=== PATIENT | male | born 1935 | race African-American/Black ===

== ENCOUNTER → 2017-01-07 | Outpatient (CLI) | payer MEDICARE, OTHER ==
[2017-01-08 15:28] LABS: ALANINE AMINOTRANSFERASE 24 U/L (21-72); ASPARTATE AMINO TRANSFERASE 19 U/L (17-59)
== END ==
LOC: OD 15:27
PROVIDERS: ATTEND Podiatrist Foot Surgery
DX: B35.1 Tinea unguium (principal)
CPT/HCPCS: 36415; 84450; 84460

== ENCOUNTER 2019-07-20 19:15 | Emergency (ER) | payer MEDICARE, OTHER ==
--- NOTE | 2019-07-20 19:42 | ER Document Report ---
ED Medical Screen (RME) - General Stated Complaint: BLOOD IN URINE Time Seen by Provider: 07/20/19 19:40 Primary Care Provider: YUNIOR CUMMINGS DPM [Primary Care Provider] - Follow up as needed Mode of Arrival: Ambulatory Information source: Patient Notes: Patient presents complaining of hematuria for the past 3 days. Patient also has some nausea and headache. Patient denies any fever. Patient reports occasional left lower quadrant abdominal pain. Patient reports only history of hypertension, diabetes and BPH. I have greeted and performed a rapid initial assessment of this patient. A comprehensive ED assessment and evaluation of the patient, analysis of test results and completion of the medical decision making process will be conducted by additional ED providers. TRAVEL OUTSIDE OF THE [place] IN LAST 30 DAYS: No - Related Data Allergies/Adverse Reactions: No Known Drug Allergies Allergy (Verified 10/04/12 08:49) wintergreen Allergy (Uncoded 09/28/12 13:42) running nose Past Medical History - Past Medical History Cardiac Medical History: Reports: Hx Hypertension Denies: Hx Heart Attack Pulmonary Medical History: Denies: Hx Asthma Neurological Medical History: Denies: Hx Cerebrovascular Accident, Hx Seizures GI Medical History: Denies: Hx Hepatitis, Hx Hiatal Hernia, Hx Ulcer Infectious Medical History: Denies: Hx Hepatitis Past Surgical History: Denies: Hx Open Heart Surgery, Hx Pacemaker Physical Exam - Vital signs Vitals: Temp Pulse Resp BP Pulse Ox 98.0 F 99 16 150/84 H 96 07/20/19 19:19 07/20/19 19:19 07/20/19 19:19 07/20/19 19:19 07/20/19 19:19 - Abdominal Tenderness: Tender - Left lower quadrant Course - Vital Signs Vital signs: Temp Pulse Resp BP Pulse Ox 98.0 F 99 16 150/84 H 96 07/20/19 19:19 07/20/19 19:19 07/20/19 19:19 07/20/19 19:19 07/20/19 19:19 Doctor's Discharge - Discharge Referrals: YUNIOR CUMMINGS DPM [Primary Care Provider] - Follow up as needed
[2019-07-20 20:01] LABS: APPEARANCE,URINE CLOUDY; BILIRUBIN,URINE NEGATIVE (NEGATIVE); COLOR,URINE RED; GLUCOSE, URINE 150 mg/dL (NEGATIVE); KETONES,URINE 20 mg/dL (NEGATIVE); LEUKOCYTE ESTERASE,URINE NEGATIVE (NEGATIVE); NITRITE,URINE NEGATIVE (NEGATIVE); PROTEIN,URINE 100 mg/dL (NEGATIVE); URINE SPECIFIC GRAVITY 1.017; UROBILINOGEN,URINE NEGATIVE mg/dL (<2.0)
[2019-07-20 20:38] LABS: ABSOLUTE EOSINOPHILS # (AUTO) 0.2 10^3/uL (0.0-0.6); ABSOLUTE LYMPHOCYTES (AUTO) 1.2 10^3/uL (0.5-4.7); ABSOLUTE MONOCYTES (AUTO) 0.5 10^3/uL (0.1-1.4); ABSOLUTE NEUT (AUTO) 2.7 10^3/uL (1.7-8.2); BASOPHILS % (AUTO) 0.9 % (0-2); EOSINOPHILS % (AUTO) 4.3 % (0-6); HEMATOCRIT 40.3 % (37.9-51.0); HEMOGLOBIN 13.7 g/dL (13.5-17.0); LYMPHOCYTES % (AUTO) 25.5 % (13-45); MEAN CORPUSCULAR HEMOGLOBIN 29.9 pg (27.0-33.4); MEAN CORPUSCULAR VOLUME 88 fl (80-97); MONOCYTES % (AUTO) 11.6 % (3-13); PLATELET COUNT 192 10^3/uL (150-450); RED BLOOD COUNT 4.59 10^6/uL (4.35-5.55); RED CELL DISTRIBUTION WIDTH 13.2 % (11.5-14.0); SEGMENTED NEUTROPHILS % (AUTO) 57.7 % (42-78); TOTAL CELLS COUNTED % (AUTO) 100 %; WHITE BLOOD COUNT 4.6 10^3/uL (4.0-10.5)
[2019-07-20 20:57] LABS: ALBUMIN 3.8 g/dL (3.5-5.0); ALKALINE PHOSPHATASE 68 U/L (38-126); ANION GAP 13 (5-19); ASPARTATE AMINO TRANSFERASE 19 U/L (17-59); BILIRUBIN,DIRECT 0.1 mg/dL (0.0-0.4); BILIRUBIN,TOTAL 0.6 mg/dL (0.2-1.3); BLOOD UREA NITROGEN 16 mg/dL (7-20); CALCIUM 8.5 mg/dL (8.4-10.2); CARBON DIOXIDE 23 mmol/L (22-30); CHLORIDE 103 mmol/L (98-107); GLUCOSE 291 mg/dL (75-110); INTERNATIONAL RATION (INR) 1.01; PROTHROMBIN TIME 13.3 SEC (11.4-15.4); TOTAL PROTEIN 7.1 g/dL (6.3-8.2)
[2019-07-20] MEDS ORDERED: NORMAL SALINE 1000 ML 1,000 ML IV ONE (21:08)
--- NOTE | 2019-07-20 21:58 | ER Document Report ---
ED GI/ - General Chief Complaint: Penile Bleeding Stated Complaint: BLOOD IN URINE Time Seen by Provider: 07/20/19 19:40 Primary Care Provider: YUNIOR CUMMINGS DPM [ACTIVE STAFF] - Follow up as needed Mode of Arrival: Ambulatory Information source: Patient Notes: Patient presents complaining of hematuria for the past 3 days. Patient also has some nausea and headache. Patient denies any fever. Patient reports occasional left lower quadrant abdominal pain. Patient reports only history of hypertension, diabetes and BPH. TRAVEL OUTSIDE OF THE [place] IN LAST 30 DAYS: No - Related Data Allergies/Adverse Reactions: Zzkskoq-Oml-Wfx Reductase Inhibitor Allergy (Verified 07/20/19 19:46) wintergreen Allergy (Uncoded 09/28/12 13:42) running nose Home Medications: lantus unit 20-24 units. glimipiride 4 mg qday. talmisartab 80 mg qday. januvia 50 mg daily. nifedipine 30 mg qday Past Medical History - General Information source: Patient - Social History Smoking Status: Never Smoker Frequency of alcohol use: None Drug Abuse: None Family History: Reviewed & Not Pertinent Patient has suicidal ideation: No Patient has homicidal ideation: No - Past Medical History Cardiac Medical History: Reports: Hx Hypertension Denies: Hx Heart Attack Pulmonary Medical History: Denies: Hx Asthma Neurological Medical History: Denies: Hx Cerebrovascular Accident, Hx Seizures Endocrine Medical History: Reports: Hx Diabetes Mellitus Type 2 GI Medical History: Denies: Hx Hepatitis, Hx Hiatal Hernia, Hx Ulcer Infectious Medical History: Denies: Hx Hepatitis Past Surgical History: Denies: Hx Open Heart Surgery, Hx Pacemaker Review of Systems - Review of Systems Constitutional: No symptoms reported EENT: No symptoms reported Cardiovascular: No symptoms reported Respiratory: No symptoms reported Gastrointestinal: Abdominal pain Genitourinary: Hematuria Male Genitourinary: No symptoms reported Musculoskeletal: No symptoms reported Skin: No symptoms reported Hematologic/Lymphatic: No symptoms reported Neurological/Psychological: No symptoms reported Physical Exam - Vital signs Vitals: Temp Pulse Resp BP Pulse Ox 98.0 F 99 16 150/84 H 96 07/20/19 19:19 07/20/19 19:19 07/20/19 19:19 07/20/19 19:19 07/20/19 19:19 - Notes Notes: PHYSICAL EXAMINATION: GENERAL: Well-appearing, well-nourished and in no acute distress. HEAD: Atraumatic, normocephalic. EYES: Pupils equal round and reactive to light, extraocular movements intact, sclera anicteric, conjunctiva are normal. ENT: Nares patent, oropharynx clear without exudates. Moist mucous membranes. NECK: Normal range of motion, supple without lymphadenopathy LUNGS: Breath sounds clear to auscultation bilaterally and equal. No wheezes rales or rhonchi. HEART: Regular rate and rhythm without murmurs ABDOMEN: Soft, nontender, nondistended abdomen. No guarding, no rebound. No masses appreciated. Musculoskeletal: Normal range of motion, no pitting or edema. No cyanosis. NEUROLOGICAL: Cranial nerves grossly intact. Normal speech, normal gait. Normal sensory, motor exams PSYCH: Normal mood, normal affect. SKIN: Warm, Dry, normal turgor, no rashes or lesions noted. PHYSICAL EXAMINATION: Course - Re-evaluation Re-evalutation: Microbiology 07/20/19 19:30 Urine Culture - Final Clean Catch Midstream Mixed Urogenital [facility] 07/20/19 07/20/19 07/20/19 19:30 20:25 20:25 WBC 4.6 RBC 4.59 Hgb 13.7 Hct 40.3 MCV 88 MCH 29.9 MCHC 34.0 RDW 13.2 Plt Count 192 Lymph % (Auto) 25.5 [place] % (Auto) 11.6 Eos % (Auto) 4.3 Baso % (Auto) 0.9 Absolute Neuts (auto) 2.7 Absolute Lymphs (auto) 1.2 Absolute Monos (auto) 0.5 Absolute Eos (auto) 0.2 Absolute Basos (auto) 0.0 Seg Neutrophils % 57.7 PT 13.3 INR 1.01 APTT 32.0 Sodium Potassium Chloride Carbon Dioxide Anion Gap BUN Creatinine Est GFR ( Amer) Est GFR (MDRD) Non-Af Glucose Calcium Total Bilirubin Direct Bilirubin Neonat Total Bilirubin Neonat Direct Bilirubin Neonat Indirect Bili AST ALT Alkaline Phosphatase Total Protein Albumin Urine Color RED Urine Appearance CLOUDY Urine pH 7.0 Ur Specific [place] 1.017 Urine Protein 100 H Urine Glucose (UA) 150 H Urine Ketones 20 H Urine Blood LARGE H Urine Nitrite NEGATIVE Urine Bilirubin NEGATIVE Urine Urobilinogen NEGATIVE Ur Leukocyte Esterase NEGATIVE Urine RBC (Auto) >182 Urine Ascorbic Acid NEGATIVE 07/20/19 20:25 WBC RBC Hgb Hct MCV MCH MCHC RDW Plt Count Lymph % (Auto) [place] % (Auto) Eos % (Auto) Baso % (Auto) Absolute Neuts (auto) Absolute Lymphs (auto) Absolute Monos (auto) Absolute Eos (auto) Absolute Basos (auto) Seg Neutrophils % PT INR APTT Sodium 138.8 Potassium 4.0 Chloride 103 Carbon Dioxide 23 Anion Gap 13 BUN 16 Creatinine 1.24 Est GFR ( Amer) > 60 Est GFR (MDRD) Non-Af 56 L Glucose 291 H Calcium 8.5 Total Bilirubin 0.6 Direct Bilirubin 0.1 Neonat Total Bilirubin Not Reportable Neonat Direct Bilirubin Not Reportable Neonat Indirect Bili Not Reportable AST 19 ALT 10 Alkaline Phosphatase 68 Total Protein 7.1 Albumin 3.8 Urine Color Urine Appearance Urine pH Ur Specific [place] Urine Protein Urine Glucose (UA) Urine Ketones Urine Blood Urine Nitrite Urine Bilirubin Urine Urobilinogen Ur Leukocyte Esterase Urine RBC (Auto) Urine Ascorbic Acid Abdomen/Pelvis CT 07/20/19 19:40 IMPRESSION: Massive enlargement of the prostate, with impression upon the urinary bladder. Adjacent areas of hyperdensity in urinary bladder likely reflect blood products. Partially calcified soft tissue mass near the pancreatic body. This could reflect adjacent calcified lymph node. A true pancreatic neoplasm is not excluded. Nonspecific subcentimeter hypodensities in the liver. Large hiatal hernia. Mild left hydronephrosis, likely secondary to massive prostate enlargement. TECHNICAL DOCUMENTATION: Quality ID # 436: Final reports with documentation of one or more dose reduction techniques (e.g., Automated exposure control, adjustment of the mA and/or kV according to patient size, use of iterative reconstruction technique) copyright 2011 [employer]- All Rights Reserved Patient appears well, nontoxic, vital signs within normal limits. Patient has an appointment scheduled with his urologist for early next week. Encourage close follow-up. Will start patient on appropriate medications at this time for prostate enlargement and possible prostatitis. Strict ED return precautions were discussed. The patient's emergency department workup and current diagnosis were explained to the patient and or family. Follow-up instructions were provided. Medications if prescribed were discussed. Instructions for when to return to the emergency department including specific worrisome symptoms were discussed with the patient and/or family. - Vital Signs Vital signs: Temp Pulse Resp BP Pulse Ox 97.7 F 76 16 142/81 H 98 07/20/19 23:09 07/20/19 23:09 07/20/19 23:09 07/20/19 23:09 07/20/19 23:09 - Laboratory Result Diagrams: 07/20/19 20:25 07/20/19 20:25 Laboratory results interpreted by me: 07/20/19 07/20/19 19:30 20:25 Est GFR (MDRD) Non-Af 56 L Glucose 291 H Urine Protein 100 H Urine Glucose (UA) 150 H Urine Ketones 20 H Urine Blood LARGE H Discharge - Discharge Clinical Impression: Enlarged prostate Hematuria Qualifiers: Hematuria type: gross Qualified Code(s): R31.0 - Gross hematuria Condition: Stable Disposition: HOME, SELF-CARE Additional Instructions: Your work-up today showed that you have significant enlargement of the prostate. I am starting you on a medication for this. We are also starting you on an an tibiotic. Please follow-up with your urologist on Thursday, bring the medicines that I started you on and please bring a copy of your paperwork from this visit so he can review your CAT scan. Please return to the emergency department with any new or worsening symptoms to include weakness, vomiting, faintness or development of fever. Prescriptions: Sulfamethoxazole/Trimethoprim [Bactrim Ds Tablet] 1 tab PO BID #14 tablet Finasteride [Proscar 5 mg Tablet] 5 mg PO DAILY #10 tablet Referrals: YUNIOR CUMMINGS DPM [ACTIVE STAFF] - Follow up as needed
--- NOTE | 2019-07-20 22:04 | RADIOLOGY REPORT (SQ) ---
EXAM DESCRIPTION: CT ABDOMEN PELVIS WITHOUT IV CONTRAST COMPLETED DATE/TME: 07/20/2019 19:40 CLINICAL HISTORY: 84 years, Male, hematuria, LLQ pain COMPARISON: None. TECHNIQUE: 216 Images stored on PACS. All CT scanners at this facility use dose modulation, iterative reconstruction, and/or weight based dosing when appropriate to reduce radiation dose to as low as reasonably achievable (ALARA). [facility]: Dose Right [facility]: CareDose [facility]: Dose Right [facility]: Teradose 4D [facility]: [employer] LIMITATIONS: None. FINDINGS: Limited evaluation of the lung bases shows a large hiatal hernia. Osseous structures are grossly intact. Subcentimeter hypodensities in the liver. These are nonspecific. The spleen, adrenal glands are unremarkable. There is a partially calcified 3.6 x 2.0 cm mass in the region of the pancreatic body. This partially volume averages with the adjacent stomach. Multiple bilateral renal cysts. The gallbladder is present. Moderate left hydroureteronephrosis. Massive enlargement of the prostate with areas of hyperdensity in the adjacent urinary bladder. Multiple calcifications of the prostate are noted. Vascular calcifications. Negative for urinary tract calculus. No evidence for bowel obstruction. Abundant stool in the colon. Occasional sigmoid diverticuli. No CT evidence for diverticulitis. No free air or free fluid IMPRESSION: Massive enlargement of the prostate, with impression upon the urinary bladder. Adjacent areas of hyperdensity in urinary bladder likely reflect blood products. Partially calcified soft tissue mass near the pancreatic body. This could reflect adjacent calcified lymph node. A true pancreatic neoplasm is not excluded. Nonspecific subcentimeter hypodensities in the liver. Large hiatal hernia. Mild left hydronephrosis, likely secondary to massive prostate enlargement. TECHNICAL DOCUMENTATION: Quality ID # 436: Final reports with documentation of one or more dose reduction techniques (e.g., Automated exposure control, adjustment of the mA and/or kV according to patient size, use of iterative reconstruction technique) copyright 2011 [employer]- All Rights Reserved
[2019-07-20] MEDS ORDERED: FINASTERIDE 5 MG TABLET PO ONE (22:58)
[2019-07-20] MEDS ORDERED: SULFAMETHOXAZOLE/TRIMETHOPRIM 800-160 MG TABLET PO ONE (22:59)
[2019-07-20 23:10] VITALS: BP 142/81
== END 2019-07-20 23:10 | disposition home or self-care (01) ==
LOC: ER 19:15
DX: L27.0 Generalized skin eruption due to drugs and medicaments taken internally (principal); T50.905A Adverse effect of unspecified drugs, medicaments and biological substances, initial encounter; R11.0 Nausea; R51 Headache; R30.9 Painful micturition, unspecified; M79.604 Pain in right leg; M79.605 Pain in left leg; I10 Essential (primary) hypertension; E11.9 Type 2 diabetes mellitus without complications; Z88.8 Allergy status to other drugs, medicaments and biological substances; Z91.018 Allergy to other foods
CPT/HCPCS: 99284; 96360; 36415; 87086; 85025; 85610; 85730; 80053; 81001; 74176; A9270 ×2; J7030

== ENCOUNTER 2019-07-23 21:26 | Emergency (ER) | payer MEDICARE, OTHER ==
--- NOTE | 2019-07-23 21:40 | ER Document Report ---
ED Medical Screen (RME) - General Chief Complaint: Urinary Problem Stated Complaint: BLOOD IN URINE Time Seen by Provider: 07/23/19 21:35 Primary Care Provider: MAK LUA MD [Primary Care Provider] - Follow up as needed Notes: Patient presents stating that he has had hematuria for the past 6 days. Patient reports increased blood loss and feeling lightheaded. Patient does complain of lower pelvic pain and occasional left flank pain. Patient was seen here this week for hematuria and placed on antibiotic and Proscar. Patient feels as though 1 of these medications is causing him to break out in a rash. I have greeted and performed a rapid initial assessment of this patient. A comprehensive ED assessment and evaluation of the patient, analysis of test results and completion of the medical decision making process will be conducted by additional ED providers. TRAVEL OUTSIDE OF THE [place] IN LAST 30 DAYS: No - Related Data Allergies/Adverse Reactions: Jzmzxjq-Hic-Qab Reductase Inhibitor Allergy (Verified 07/20/19 19:46) finasteride [From Proscar] Adverse Reaction (Verified 07/23/19 21:39) wintergreen Allergy (Uncoded 09/28/12 13:42) running nose Past Medical History - Past Medical History Cardiac Medical History: Reports: Hx Hypertension Denies: Hx Heart Attack Pulmonary Medical History: Denies: Hx Asthma Neurological Medical History: Denies: Hx Cerebrovascular Accident, Hx Seizures Endocrine Medical History: Reports: Hx Diabetes Mellitus Type 2 GI Medical History: Denies: Hx Hepatitis, Hx Hiatal Hernia, Hx Ulcer Infectious Medical History: Denies: Hx Hepatitis Past Surgical History: Denies: Hx Open Heart Surgery, Hx Pacemaker Physical Exam - Vital signs Vitals: Temp Pulse Resp BP Pulse Ox 98.0 F 90 16 161/76 H 99 07/23/19 21:34 07/23/19 21:34 07/23/19 21:34 07/23/19 21:34 07/23/19 21:34 - Abdominal Tenderness: Tender - Lower abdomen Course - Vital Signs Vital signs: Temp Pulse Resp BP Pulse Ox 98.0 F 90 16 161/76 H 99 07/23/19 21:34 07/23/19 21:34 07/23/19 21:34 07/23/19 21:34 07/23/19 21:34 Doctor's Discharge - Discharge Referrals: MAK LUA MD [Primary Care Provider] - Follow up as needed
[2019-07-23 21:54] LABS: APPEARANCE,URINE CLEAR; BILIRUBIN,URINE NEGATIVE (NEGATIVE); COLOR,URINE RED; GLUCOSE, URINE NEGATIVE (NEGATIVE); KETONES,URINE NEGATIVE (NEGATIVE); LEUKOCYTE ESTERASE,URINE SMALL (NEGATIVE); NITRITE,URINE NEGATIVE (NEGATIVE); PROTEIN,URINE 100 mg/dL (NEGATIVE); URINE SPECIFIC GRAVITY 1.003; UROBILINOGEN,URINE NEGATIVE mg/dL (<2.0)
[2019-07-23 22:00] LABS: ABSOLUTE EOSINOPHILS # (AUTO) 0.1 10^3/uL (0.0-0.6); ABSOLUTE LYMPHOCYTES (AUTO) 0.8 10^3/uL (0.5-4.7); ABSOLUTE MONOCYTES (AUTO) 0.7 10^3/uL (0.1-1.4); ABSOLUTE NEUT (AUTO) 3.2 10^3/uL (1.7-8.2); BASOPHILS % (AUTO) 0.5 % (0-2); EOSINOPHILS % (AUTO) 2.7 % (0-6); HEMATOCRIT 38.6 % (37.9-51.0); HEMOGLOBIN 12.9 g/dL (13.5-17.0); LYMPHOCYTES % (AUTO) 15.5 % (13-45); MEAN CORPUSCULAR HEMOGLOBIN 29.5 pg (27.0-33.4); MEAN CORPUSCULAR HGB CONC 33.5 g/dL (32.0-36.0); MEAN CORPUSCULAR VOLUME 88 fl (80-97); PLATELET COUNT 183 10^3/uL (150-450); RED BLOOD COUNT 4.38 10^6/uL (4.35-5.55); RED CELL DISTRIBUTION WIDTH 13.2 % (11.5-14.0); SEGMENTED NEUTROPHILS % (AUTO) 66.3 % (42-78); TOTAL CELLS COUNTED % (AUTO) 100 %; WHITE BLOOD COUNT 4.9 10^3/uL (4.0-10.5)
[2019-07-23 22:11] LABS: INTERNATIONAL RATION (INR) 1.05; PROTHROMBIN TIME 13.7 SEC (11.4-15.4)
[2019-07-23 22:12] LABS: PARTIAL THROMBOPLASTIN TIME 33.2 SEC (23.5-35.8)
[2019-07-23 22:16] LABS: ALBUMIN 4.1 g/dL (3.5-5.0); ALKALINE PHOSPHATASE 70 U/L (38-126); ANION GAP 10 (5-19); ASPARTATE AMINO TRANSFERASE 22 U/L (17-59); BILIRUBIN,DIRECT 0.1 mg/dL (0.0-0.4); BILIRUBIN,TOTAL 0.7 mg/dL (0.2-1.3); BLOOD UREA NITROGEN 18 mg/dL (7-20); CARBON DIOXIDE 24 mmol/L (22-30); CHLORIDE 102 mmol/L (98-107); GLUCOSE 172 mg/dL (75-110); POTASSIUM 4.3 mmol/L (3.6-5.0); TOTAL PROTEIN 7.3 g/dL (6.3-8.2)
[2019-07-24] MEDS ORDERED: CEPHALEXIN 500 MG CAPSULE PO ONE (01:45)
[2019-07-24] MEDS ORDERED: PREDNISONE 20 MG TABLET PO ONE (01:45)
--- NOTE | 2019-07-24 02:00 | ER Document Report ---
Entered by HARDY CERVANTES SCRIBE 07/24/19 0145 Acting as scribe for:GIRISH KHAN IV, MD ED General - General Chief Complaint: Urinary Problem Stated Complaint: BLOOD IN URINE Time Seen by Provider: 07/23/19 21:35 Primary Care Provider: MAK LUA MD [Primary Care Provider] - Follow up as needed Notes: Patient is a 84-year-old male presenting to the emergency department complaining of hematuria. Patient states that he was seen on 07-20-19 for hematuria, and was prescribed Proscar, and sulfa medication. He states that on the he noticed he was having "large red circular spots" on his legs bilaterally. Patient states that he is feeling nauseas, headaches, having painful urination, his legs have been feeling dull and achy bilaterally. Patient denies shortness of breath. TRAVEL OUTSIDE OF THE [place] IN LAST 30 DAYS: No - Related Data Allergies/Adverse Reactions: Axhjdri-Ewe-Kwa Reductase Inhibitor Allergy (Verified 07/20/19 19:46) finasteride [From Proscar] Adverse Reaction (Verified 07/23/19 21:39) wintergreen Allergy (Uncoded 09/28/12 13:42) running nose Past Medical History - General Information source: Patient, [facility] Records - Social History Smoking Status: Never Smoker Cigarette use (# per day): No Chew tobacco use (# tins/day): No Smoking Education Provided: No Frequency of alcohol use: None Drug Abuse: None Family History: Reviewed & Not Pertinent Patient has suicidal ideation: No Patient has homicidal ideation: No - Past Medical History Cardiac Medical History: Reports: Hx Hypertension Endocrine Medical History: Reports: Hx Diabetes Mellitus Type 2 Review of Systems - Review of Systems Constitutional: No symptoms reported EENT: No symptoms reported Cardiovascular: No symptoms reported Respiratory: No symptoms reported. denies: Short of breath Gastrointestinal: No symptoms reported Genitourinary: See HPI, Dysuria, Hematuria Male Genitourinary: No symptoms reported Musculoskeletal: No symptoms reported Skin: See HPI, Change in color - Erythema, Rash - Erythema spotting lower extremities bilaterally Hematologic/Lymphatic: No symptoms reported Neurological/Psychological: See HPI, Headaches -: Yes All other systems reviewed and negative Physical Exam - Vital signs Vitals: Temp Pulse Resp BP Pulse Ox 98.0 F 90 16 161/76 H 99 07/23/19 21:34 07/23/19 21:34 07/23/19 21:34 07/23/19 21:34 07/23/19 21:34 - Notes Notes: Physical Exam: General: Alert, appears well. HEENT: Normocephalic. Atraumatic. PERRL. Extraocular movements intact. Oropharynx clear. Neck: Supple. Non-tender. Respiratory: No respiratory distress. Clear and equal breath sounds bilaterally. Cardiovascular: Regular rate and rhythm. Abdominal: Normal Inspection. Non-tender. No distension. Normal Bowel Sounds. Back: No gross abnormalities. Extremities: Moves all four extremities. Upper extremities: Normal inspection. Normal ROM. Lower extremities: Macular lesions bilaterally. Nonblanching. Normal ROM. Neurological: Normal cognition. AAOx4. Normal speech. Psychological: Normal affect. Normal Mood. Skin: Warm. Dry. Normal color. Course - Re-evaluation Re-evalutation: 07/24/19 02:12 Findings of ER MSE discussed with patient. Patient advised to stop sulfa drug in addition to the Proscar that he is already stopped. Discussed with patient likelihood of symptoms being due to a adverse drug reaction. Patient instructed to follow-up with his urologist on 07/25/2019. Emergency signs and symptoms, reasons to return to the emergency department discussed with patient. Patient expressed understanding of reasons to return to the ED. 07/24/19 02:16 Patient's prior visit to the ED including CT was reviewed by this MD. - Vital Signs Vital signs: Temp Pulse Resp BP Pulse Ox 97.6 F 78 20 132/97 H 97 07/24/19 02:05 07/24/19 02:05 07/24/19 02:05 07/24/19 02:05 07/24/19 02:05 - Laboratory Result Diagrams: 07/23/19 21:50 07/23/19 21:50 Laboratory results interpreted by me: 07/23/19 07/23/19 07/23/19 21:33 21:50 21:50 Hgb 12.9 L [place] % (Auto) 15.0 H Sodium 136.2 L Creatinine 1.53 H Est GFR ( Amer) 53 L Est GFR (MDRD) Non-Af 44 L Glucose 172 H Urine Protein 100 H Urine Blood LARGE H Ur Leukocyte Esterase SMALL H Discharge - Discharge Clinical Impression: Adverse drug reaction Condition: Good Disposition: HOME, SELF-CARE Instructions: Acute Allergic Reaction to Drugs ([facility]) Additional Instructions: Return to the Emergency Department without delay if any worse. FOLLOW UP WITH YOUR UROLOGIST ON 07/25/19 WITHOUT FAIL. HOME CARE INSTRUCTIONS & INFORMATION: Thank you for choosing us for your medical needs. We hope you're satisfied with the care you received. After you leave, you must properly care for your problem and, at the same time, observe its progress. Any condition can change. Some illnesses can change rapidly over hours or days. If your condition worsens, return to the Emergency Department or see your physician promptly. ABOUT YOUR X-RAYS AND EKG'S: If you had an EKG or X-rays taken, they have been read by the Emergency Physician. The X-rays and EKG's will also be read by a Radiologist or Drilling Contractor within 24 hours. If discrepancies are noted, you will be notified by telephone. Please be certain the ED has a correct telephone number & address where you can be reached. Also, realize that some fractures or abnormalities do not show up on initial X-rays. If your symptoms continue, see your physician. ABOUT YOUR LABORATORY TEST: If you had laboratory tests, the results have been reviewed by the Emergency Physician. Some test results (for example cultures) may not be available for several days. You will be contacted if any test result shows you need additional treatment. Please be certain the ED has a correct telephone number and address where you can be reached. ABOUT YOUR MEDICATIONS: You will receive instructions on how to take your medicine on the prescription label you receive. Additional information may be provided by the Pharmacy. If you have questions afterwards, call the ED for clarification or further instructions. Some prescribed medications may cause drowsiness. Do not perform tasks such as driving a car or operating machinery without consulting your Pharmacist. If you feel you need a refill of pain medication, your condition will need re-evaluation. Please do not call for a refill of any medication. ABOUT YOUR SIGNATURE: Signature of this document acknowledges to followin. Understanding that you received emergency treatment and that you may be released before al medical problems are known or treated. Please be certain the ED has a correct phone number & address where you can be reached. 2. Acknowledgement that you will arrange for follow-up care as recommended. 3. Authorization for the Emergency Physician to provide information to your follow-up Physician in order to maximize your care. AT ANY TIME, IF YOUR SYMPTOMS CHANGE SIGNIFICANTLY OR WORSEN OR YOU DEVELOP NEW SYMPTOMS, RETURN TO THE EMERGENCY DEPARTMENT IMMEDIATELY FOR RE-EVALUATION. OUR GOAL IS TO PROVIDE EXCELLENT MEDICAL CARE! WE HOPE THAT WE HAVE MET YOUR EXPECTATIONS DURING YOUR EMERGENCY DEPARTMENT VISIT AND THAT YOU FEEL YOU HAVE RECEIVED EXCELLENT CARE! Prescriptions: Cephalexin Monohydrate [Keflex 500 mg Capsule] 500 mg PO Q6H 7 Days #28 capsule Prednisone 10 mg PO DAILY #15 tablet Referrals: MAK LUA MD [Primary Care Provider] - Follow up as needed I personally performed the services described in the documentation, reviewed and edited the documentation which was dictated to the scribe in my presence, and it accurately records my words and actions.
[2019-07-24 02:09] VITALS: BP 132/97
== END 2019-07-24 02:10 | disposition home or self-care (01) ==
LOC: ER 21:26
DX: T50.995A Adverse effect of other drugs, medicaments and biological substances, initial encounter (principal); T37.0X5A Adverse effect of sulfonamides, initial encounter; R31.9 Hematuria, unspecified; R11.0 Nausea; R51 Headache; R30.0 Dysuria; M79.605 Pain in left leg; M79.604 Pain in right leg; I10 Essential (primary) hypertension; E11.9 Type 2 diabetes mellitus without complications
CPT/HCPCS: 99283; 36415; 87086; 85025; 85610; 85730; 80053; 81001; A9270 ×2; J7512

== ENCOUNTER 2019-07-30 08:18 | Emergency (ER) | payer MEDICARE, OTHER ==
[2019-07-30 09:54] LABS: APPEARANCE,URINE CLOUDY; BILIRUBIN,URINE NEGATIVE (NEGATIVE); COLOR,URINE RED; GLUCOSE, URINE 50 mg/dL (NEGATIVE); KETONES,URINE NEGATIVE (NEGATIVE); LEUKOCYTE ESTERASE,URINE SMALL (NEGATIVE); NITRITE,URINE NEGATIVE (NEGATIVE); PROTEIN,URINE 100 mg/dL (NEGATIVE); URINE SPECIFIC GRAVITY 1.008; UROBILINOGEN,URINE NEGATIVE mg/dL (<2.0)
[2019-07-30] MEDS ORDERED: NORMAL SALINE 1000 ML 1,000 ML IV ONE (10:58)
--- NOTE | 2019-07-30 10:58 | ER Document Report ---
ED Medical Screen (RME) - General Chief Complaint: Trouble Voiding Stated Complaint: URINARY PROBLEM Time Seen by Provider: 07/30/19 10:55 Primary Care Provider: MAK LUA MD [Primary Care Provider] - Follow up as needed Mode of Arrival: Ambulatory Information source: Patient Notes: 84-year-old male presented to ED for complaint of pain and difficulty with ur ination. He states he was having blood clots in his urine and has been for a week or so. He states he is never had a history of blood clots in his urine before. He states he is never had a history of kidney stones. He states after he gave a urine sample earlier that had blood clots and that he is able to void easily now. He does have a large amount of blood in the first urine that he gave. Will order some IV fluids now and he will be reexamined. He states he is in no pain at this time. I have greeted and performed a rapid initial assessment of this patient. A comprehensive ED assessment and evaluation of the patient, analysis of test results and completion of medical decision making process will be conducted by an additional ED providers. TRAVEL OUTSIDE OF THE [place] IN LAST 30 DAYS: No - Related Data Allergies/Adverse Reactions: Rvzpgwv-Oct-Qmk Reductase Inhibitor Allergy (Verified 07/30/19 08:25) finasteride [From Proscar] Adverse Reaction (Verified 07/30/19 08:25) wintergreen Allergy (Uncoded 07/30/19 08:25) running nose Home Medications: lantus. januvia. glimepiride. adalat. pulaseride. telmirartan Past Medical History - Social History Chew tobacco use (# tins/day): No Frequency of alcohol use: None Drug Abuse: None - Past Medical History Cardiac Medical History: Reports: Hx Hypertension Denies: Hx Heart Attack Pulmonary Medical History: Denies: Hx Asthma Neurological Medical History: Denies: Hx Cerebrovascular Accident, Hx Seizures Endocrine Medical History: Reports: Hx Diabetes Mellitus Type 2 GI Medical History: Denies: Hx Hepatitis, Hx Hiatal Hernia, Hx Ulcer Infectious Medical History: Denies: Hx Hepatitis Past Surgical History: Denies: Hx Open Heart Surgery, Hx Pacemaker Physical Exam - Vital signs Vitals: Temp Pulse Resp BP Pulse Ox 97.6 F 87 16 124/64 98 07/30/19 08:22 07/30/19 08:22 07/30/19 08:22 07/30/19 08:22 07/30/19 08:22 Course - Vital Signs Vital signs: Temp Pulse Resp BP Pulse Ox 97.6 F 87 16 124/64 98 07/30/19 08:25 07/30/19 08:22 07/30/19 08:25 07/30/19 08:22 07/30/19 08:25 - Laboratory Laboratory results interpreted by me: 07/30/19 09:34 Urine Protein 100 H Urine Glucose (UA) 50 H Urine Blood LARGE H Ur Leukocyte Esterase SMALL H Urine Ascorbic Acid 40 H Doctor's Discharge - Discharge Referrals: MAK LUA MD [Primary Care Provider] - Follow up as needed
[2019-07-30 11:18] LABS: ABSOLUTE EOSINOPHILS # (AUTO) 0.1 10^3/uL (0.0-0.6); ABSOLUTE LYMPHOCYTES (AUTO) 1.1 10^3/uL (0.5-4.7); ABSOLUTE MONOCYTES (AUTO) 0.5 10^3/uL (0.1-1.4); ABSOLUTE NEUT (AUTO) 3.9 10^3/uL (1.7-8.2); BASOPHILS % (AUTO) 0.4 % (0-2); EOSINOPHILS % (AUTO) 1.4 % (0-6); HEMATOCRIT 39.6 % (37.9-51.0); HEMOGLOBIN 13.6 g/dL (13.5-17.0); LYMPHOCYTES % (AUTO) 19.8 % (13-45); MEAN CORPUSCULAR HGB CONC 34.2 g/dL (32.0-36.0); MEAN CORPUSCULAR VOLUME 88 fl (80-97); MONOCYTES % (AUTO) 8.4 % (3-13); PLATELET COUNT 221 10^3/uL (150-450); RED BLOOD COUNT 4.53 10^6/uL (4.35-5.55); TOTAL CELLS COUNTED % (AUTO) 100 %; WHITE BLOOD COUNT 5.6 10^3/uL (4.0-10.5)
--- NOTE | 2019-07-30 11:28 | ER Document Report ---
ED General - General Chief Complaint: Trouble Voiding Stated Complaint: URINARY PROBLEM Time Seen by Provider: 07/30/19 10:55 Primary Care Provider: MAK LUA MD [Primary Care Provider] - Follow up as needed Mode of Arrival: Ambulatory TRAVEL OUTSIDE OF THE [place] IN LAST 30 DAYS: No - HPI Notes: 84wm h/o prostate hyperplasia only recently noted on CT a week ago here at [place] ED w/u for hematuria. he has a urology outpatient appt thursday, and had been d/c from ED urinating on his own and his urine had been clear yellow until last night. before going to bed he noted post void urgency and some pain w/ urination, then through night was waking up at times q30 min to 1 hr w/ dribbling unable to pee. he says since in the ED ~30 min p/t me interviewing had large urination on his own and passed a number of blood clots. since has urinated in urinal here 1x more which is clear and now not assc/ retntion or pain or post void sx. he denies f/c/s, no n/v. no back or abd pain. no dec in po intake. no falls. has finished Abx but stopped procar? after few days since felt Lower ext rash started and is resolving now since stopping it. i Reviewed non-contrast CT A/P a over a week ago 07-20-19 in [place] [facility] ED work-up: massive prostate impressing on the bladder with areas of hyperdensity appears to be blood clots in the bladder. Partially calcified soft tissue mass near pancreatic body plus or minus calcified lymph node cannot exclude pancreatic neoplasm. Large hiatal hernia, mild left hydronephrosis. - Related Data Allergies/Adverse Reactions: Sknadyl-Aoh-Nlw Reductase Inhibitor Allergy (Verified 07/30/19 08:25) finasteride [From Proscar] Adverse Reaction (Verified 07/30/19 08:25) wintergreen Allergy (Uncoded 07/30/19 08:25) running nose Home Medications: lantus. januvia. glimepiride. adalat. pulaseride. telmirartan Past Medical History - General Information source: Patient - Social History Smoking Status: Never Smoker Chew tobacco use (# tins/day): No Frequency of alcohol use: None Drug Abuse: None Family History: Reviewed & Not Pertinent Patient has suicidal ideation: No Patient has homicidal ideation: No - Past Medical History Cardiac Medical History: Reports: Hx Hypertension Denies: Hx Heart Attack Pulmonary Medical History: Denies: Hx Asthma Neurological Medical History: Denies: Hx Cerebrovascular Accident, Hx Seizures Endocrine Medical History: Reports: Hx Diabetes Mellitus Type 2 GI Medical History: Denies: Hx Hepatitis, Hx Hiatal Hernia, Hx Ulcer Infectious Medical History: Denies: Hx Hepatitis Past Surgical History: Denies: Hx Open Heart Surgery, Hx Pacemaker Review of Systems - Review of Systems Constitutional: No symptoms reported EENT: No symptoms reported Cardiovascular: No symptoms reported Respiratory: No symptoms reported Gastrointestinal: No symptoms reported. denies: Abdomen distended, Abdominal pain, Diarrhea, Nausea, Vomiting, Constipation, Blood streaked bowels, Poor appetite, Poor fluid intake, Black stools, Rectal bleeding, Fecal incontinence Genitourinary: See HPI Male Genitourinary: No symptoms reported Musculoskeletal: No symptoms reported Skin: No symptoms reported Hematologic/Lymphatic: No symptoms reported Neurological/Psychological: No symptoms reported Physical Exam - Vital signs Vitals: Temp Pulse Resp BP Pulse Ox 97.6 F 87 16 124/64 98 07/30/19 08:22 07/30/19 08:22 07/30/19 08:22 07/30/19 08:22 07/30/19 08:22 Interpretation: Normal - Notes Notes: ~300 cc clear yellow urine in urinal container at bedside. - General General appearance: Appears well, Alert - HEENT Head: Normocephalic, Atraumatic Eyes: Normal Pupils: PERRL - Respiratory Respiratory status: No respiratory distress Chest status: Nontender Breath sounds: Normal Chest palpation: Normal - Cardiovascular Rhythm: Regular Heart sounds: Normal auscultation Murmur: No - Abdominal Inspection: Normal Distension: No distension Bowel sounds: Normal Tenderness: Nontender Organomegaly: No organomegaly - Back Back: Normal, Nontender - Extremities General upper extremity: Normal inspection, Nontender, Normal color, Normal ROM, Normal temperature General lower extremity: Normal inspection, Nontender, Normal color, Normal ROM, Normal temperature, Normal weight bearing. No: Charmaine's sign - Neurological Neuro grossly intact: Yes Cognition: Normal Orientation: AAOx4 Aysha Coma Scale Eye Opening: Spontaneous [place] Coma Scale Verbal: Oriented Aysha Coma Scale Motor: Obeys Commands Aysha Coma Scale Total: 15 Speech: Normal Motor strength normal: LUE, RUE, LLE, RLE Sensory: Normal - Psychological Associated symptoms: Normal affect, Normal mood - Skin Skin Temperature: Warm Skin Moisture: Dry Skin Color: Normal Course - Re-evaluation Re-evalutation: 08/09/19 16:11 abd u/s performed. i ordered repeat CT noncontrast today. Renal Ultrasound 07/30/19 10:56 IMPRESSION: Chronic medical renal disease. Bilateral cysts. No hydronephrosis. Abdomen/Pelvis CT 07/30/19 12:48 IMPRESSION: 1. Unchanged mass between the greater curvature of the stomach and body of the pancreas. Favor calcified lymph node but nonspecific. 2. Left adrenal nodule. 3. Diverticulosis without evidence of diverticulitis. 4. Prostatomegaly. i called urology regional sales coordinator at office he's following up w/ next week. he has a CT w iv contrast ordered for thursday and based on those findings the urologist will schedule him for visit/cytoscopy this week. the oncall urologist and i discussed no need to place stein proactively even though very possible he could obstruct again w/ more clots. i told him we can get the CT w/ iv contrast today ihn the ED, so thursday instead of going to have that done outpatient he can call the office first thing to tell doc he had it done here so they can schedule poli. h caio said of course return to ED if needed in interim which i discussed w/ patient. also we discussed n/v/f or pain to return. i discussed plan for him at urology office is for cystoscopy. - Vital Signs Vital signs: Temp Pulse Resp BP Pulse Ox 98.0 F 69 16 136/64 H 100 07/30/19 17:52 07/30/19 17:52 07/30/19 12:37 07/30/19 17:52 07/30/19 17:52 - Laboratory Result Diagrams: 07/30/19 10:10 07/30/19 10:10 Laboratory results interpreted by me: 07/30/19 07/30/19 09:34 10:10 Sodium 136.1 L Est GFR (MDRD) Non-Af 59 L Glucose 237 H Urine Protein 100 H Urine Glucose (UA) 50 H Urine Blood LARGE H Ur Leukocyte Esterase SMALL H Urine Ascorbic Acid 40 H Discharge - Discharge Clinical Impression: Hematuria, Blood clot in bladder, Prostate hyperplasia without urinary obstruction Disposition: HOME, SELF-CARE Additional Instructions: Today we performed a CT with IV contrast which is the study your urologist had planned for on Thursday this did not show much change in the enlargement of the prostate, area of calcification near your pancreas which may just be a calcified lymph node, but does need close follow-up and monitoring to ensure it does not appear changed. Here in the emergency department after you passed the first blood clots in your urine you have continued to pee on your own clear yellow uri ne. If before you are able to follow-up with the urologist you have symptoms where you are unable to pee and you have pain and you have some distention or filling of your bladder but you are unable to urinate please return to the emergency department. Otherwise please call first thing Thursday morning and let your her urologist know that the CT with IV contrast was already performed at [facility] emergency department, that way he can hopefully reschedule your appointment with him and plan for cystoscopy. Also watch for any fevers chills sweats or other persistent pain such as abdominal pain and again that you continue to urinate on your own okay. Referrals: MAK LUA MD [Primary Care Provider] - Follow up as needed
[2019-07-30 11:37] LABS: ALBUMIN 3.8 g/dL (3.5-5.0); ALKALINE PHOSPHATASE 58 U/L (38-126); ANION GAP 10 (5-19); ASPARTATE AMINO TRANSFERASE 23 U/L (17-59); BILIRUBIN,DIRECT 0.2 mg/dL (0.0-0.4); BILIRUBIN,TOTAL 0.9 mg/dL (0.2-1.3); BLOOD UREA NITROGEN 20 mg/dL (7-20); CALCIUM 9.3 mg/dL (8.4-10.2); CARBON DIOXIDE 27 mmol/L (22-30); CHLORIDE 99 mmol/L (98-107); GLUCOSE 237 mg/dL (75-110); POTASSIUM 4.3 mmol/L (3.6-5.0); TOTAL PROTEIN 7.1 g/dL (6.3-8.2)
--- NOTE | 2019-07-30 12:34 | RADIOLOGY REPORT (SQ) ---
EXAM DESCRIPTION: U/S RETROPERITON (RENAL/AORTA) COMPLETED DATE/TIME: 07/30/2019 11:35 am REASON FOR STUDY: blood in urine COMPARISON: None. TECHNIQUE: Dynamic and static grayscale images acquired of the kidneys and bladder and recorded on P ACS. Additional selected color Doppler and spectral images recorded. LIMITATIONS: Overlying bowel gas. FINDINGS: RIGHT KIDNEY: 8.9 cm. Increased cortical echogenicity. 5 cm upper pole cyst. No hyd ronephrosis. No calcifications. LEFT KIDNEY: 8.3 cm. Increased cortical echogenicity. Multiple cysts, the largest 6 cm upper anita e. No hydronephrosis. No calcifications. BLADDER: No masses. OTHER: Enlarged prostate. IMPRESSION: Chronic medical renal disease. Bilateral cysts. No hydronephrosis. TECHNICAL DOCUMENTATION: JOB ID: [id number] [employer]- All Rights Reserved Reading location - IP/workstation name: [email or web address]
--- NOTE | 2019-07-30 14:01 | RADIOLOGY REPORT (SQ) ---
EXAM DESCRIPTION: CT ABD/PELVIS WITH IV ONLY COMPLETED DATE/TIME: 07/30/2019 1:25 pm REASON FOR STUDY: bladder clots recurrent COMPARISON: 07/20/2019 TECHNIQUE: CT scan of the abdomen and pelvis performed using helical scanning technique with dynamic intravenous contrast injection. No oral contrast. Images reviewed with lung, soft tissue, and bone windows. Reconstructed coronal and sagittal MPR images reviewed. Delayed images for evaluation of the urinary system also acquired. All images stored on PACS. All CT scanners at this facility use dose modulation, iterative reconstruction, and/or weight based d osing when appropriate to reduce radiation dose to as low as reasonably achievable (ALARA). [facility]: Dose Right [facility]: CareDose [facility]: Dose Right [facility]: Teradose 4D [facility]: YEVVO CONTRAST TYPE AND DOSE: contrast/concentration: Isovue 350.00 mg/ml; Total Contrast Delivered: 100.0 ml; Total Saline Delivered: 72.0 ml RENAL FUNCTION: BUN 20 creatinine 1.18 RADIATION DOSE: CT Rad equipment meets quality standard of care and radiation dose reduction techniq ues were employed. CTDIvol: 7.7 - 10.8 mGy. DLP: 1001 mGy-cm.. LIMITATIONS: None. FINDINGS: LOWER CHEST: Hiatal hernia. LIVER: Small cyst right lobe. No dilated ducts. SPLEEN: Normal size. No focal lesions. PANCREAS: No masses. No significant calcifications. No adjacent inflammation or peripancreatic fluid collections. Pancreatic duct not dilated. GALLBLADDER: No identified stones by CT criteria. No inflammatory changes to suggest cholecystitis. ADRENAL GLANDS: 2 cm left adrenal nodule. RIGHT KIDNEY AND URETER: Cortical cysts measuring up to 5 cm. No solid masses. No significant calc ifications. No hydronephrosis or hydroureter. LEFT KIDNEY AND URETER: Cortical cysts measuring up to 7 cm. No solid masses. No significant calci fications. No hydronephrosis or hydroureter. AORTA AND VESSELS: No aneurysm. RETROPERITONEUM: No retroperitoneal adenopathy, hemorrhage or masses. BOWEL AND PERITONEAL CAVITY: 2.3 x 3.6 cm partially calcified mass between the greater curvature of t he stomach and body of the pancreas is unchanged. No obstruction. Diverticulosis descending and sig moid colon. APPENDIX: Not visualized. PELVIS: Massive enlargement of the prostate unchanged. ABDOMINAL WALL: No masses. No hernias. BONES: Nothing acute. OTHER: No other significant finding. IMPRESSION: 1. Unchanged mass between the greater curvature of the stomach and body of the pancreas. Favor calci fied lymph node but nonspecific. 2. Left adrenal nodule. 3. Diverticulosis without evidence of diverticulitis. 4. Prostatomegaly. TECHNICAL DOCUMENTATION: JOB ID: [id number] Quality ID # [id number]: Final reports with documentation of one or more dose reduction techniques (e.g., Au tomated exposure control, adjustment of the mA and/or kV according to patient size, use of iterative reconstruction technique) 2010 Identified- All Rights Reserved Reading location - IP/workstation name: [email or web address]
[2019-07-30 17:53] VITALS: BP 136/64
== END 2019-07-30 17:57 | disposition home or self-care (01) ==
LOC: ER 08:18
DX: N40.0 Benign prostatic hyperplasia without lower urinary tract symptoms (principal); N32.89 Other specified disorders of bladder; R31.9 Hematuria, unspecified; R39.198 Other difficulties with micturition; R39.15 Urgency of urination; R30.9 Painful micturition, unspecified; R21 Rash and other nonspecific skin eruption; I10 Essential (primary) hypertension; E11.9 Type 2 diabetes mellitus without complications
CPT/HCPCS: 99284; 96360; 96361; 36415; 85025; 80053; 81001; 76770; 74177; J7030

== ENCOUNTER 2019-08-12 09:29 | Emergency (ER) | payer MEDICARE, OTHER ==
--- NOTE | 2019-08-12 09:56 | ER Document Report ---
ED Medical Screen (RME) - General Chief Complaint: Urinary Retention Stated Complaint: DIFFICULTY URINATING Time Seen by Provider: 08/12/19 09:50 Primary Care Provider: MAK LUA MD [Primary Care Provider] - Follow up as needed Information source: Patient Notes: Patient presents complaining of dysuria and hematuria. Patient states he is only voiding small amounts. Patient does not feel like he is able to fully empty his bladder. Patient does have a history of BPH and had a cystoscopy recently. Patient last had a Robledo catheter 1 week ago. I have greeted and performed a rapid initial assessment of this patient. A comprehensive ED assessment and evaluation of the patient, analysis of test results and completion of the medical decision making process will be conducted by additional ED providers. TRAVEL OUTSIDE OF THE [place] IN LAST 30 DAYS: No - Related Data Allergies/Adverse Reactions: Vdzdfnj-Gzj-Qgg Reductase Inhibitor Allergy (Verified 08/12/19 09:47) finasteride [From Proscar] Adverse Reaction (Verified 08/12/19 09:47) wintergreen Allergy (Uncoded 08/12/19 09:47) running nose Past Medical History - Social History Chew tobacco use (# tins/day): No Frequency of alcohol use: None Drug Abuse: None - Past Medical History Cardiac Medical History: Reports: Hx Hypertension Denies: Hx Heart Attack Pulmonary Medical History: Denies: Hx Asthma Neurological Medical History: Denies: Hx Cerebrovascular Accident, Hx Seizures Endocrine Medical History: Reports: Hx Diabetes Mellitus Type 2 GI Medical History: Denies: Hx Hepatitis, Hx Hiatal Hernia, Hx Ulcer Infectious Medical History: Denies: Hx Hepatitis Past Surgical History: Denies: Hx Open Heart Surgery, Hx Pacemaker Physical Exam - Vital signs Vitals: Temp Pulse Resp BP Pulse Ox 97.5 F 88 18 156/76 H 99 08/12/19 09:33 08/12/19 09:33 08/12/19 09:33 08/12/19 09:33 08/12/19 09:33 - Abdominal Tenderness: Tender - Suprapubic - Back Back: No: CVA tenderness Course - Vital Signs Vital signs: Temp Pulse Resp BP Pulse Ox 97.5 F 88 18 156/76 H 99 08/12/19 09:48 08/12/19 09:48 08/12/19 09:48 08/12/19 09:48 08/12/19 09:48 Doctor's Discharge - Discharge Referrals: MAK LUA MD [Primary Care Provider] - Follow up as needed
[2019-08-12] MEDS ORDERED: LIDOCAINE 2% URO-JET 5 ML KIT MM ONE (10:20)
--- NOTE | 2019-08-12 10:24 | ER Document Report ---
ED GI/ - General Chief Complaint: Urinary Retention Stated Complaint: DIFFICULTY URINATING Time Seen by Provider: 08/12/19 09:50 Primary Care Provider: MAK LUA MD [Primary Care Provider] - Follow up as needed Notes: Patient is an 84-year-old male who comes in with difficulty urinating since this morning. States that it is a slow stream and bloody. Patient had a cystoscopy recently and had a catheter in for 3 days. He was placed on finasteride which she has been taking. He is not on antibiotics. States that there was a little bit of burning and some blood in his urine as well. Patient has no back pain, fever, or nausea vomiting. TRAVEL OUTSIDE OF THE [place] IN LAST 30 DAYS: No - HPI Patient complains to provider of: Urinary retention Quality of pain: Dull Severity at maximum: Mild Severity in ED: Mild Location: Suprapubic - Related Data Allergies/Adverse Reactions: Rpjwjdg-Kim-Hql Reductase Inhibitor Allergy (Verified 08/12/19 09:47) finasteride [From Proscar] Adverse Reaction (Verified 08/12/19 09:47) wintergreen Allergy (Uncoded 08/12/19 09:47) running nose Past Medical History - General Information source: Patient - Social History Smoking Status: Never Smoker Chew tobacco use (# tins/day): No Frequency of alcohol use: None Drug Abuse: None Family History: Reviewed & Not Pertinent Patient has suicidal ideation: No Patient has homicidal ideation: No - Past Medical History Cardiac Medical History: Reports: Hx Hypertension Denies: Hx Heart Attack Pulmonary Medical History: Denies: Hx Asthma Neurological Medical History: Denies: Hx Cerebrovascular Accident, Hx Seizures Endocrine Medical History: Reports: Hx Diabetes Mellitus Type 2 GI Medical History: Denies: Hx Hepatitis, Hx Hiatal Hernia, Hx Ulcer Infectious Medical History: Denies: Hx Hepatitis Past Surgical History: Denies: Hx Open Heart Surgery, Hx Pacemaker Review of Systems - Review of Systems -: Yes All other systems reviewed and negative Physical Exam - Vital signs Vitals: Temp Pulse Resp BP Pulse Ox 97.5 F 88 18 156/76 H 99 08/12/19 09:33 08/12/19 09:33 08/12/19 09:33 08/12/19 09:33 08/12/19 09:33 Interpretation: Normal - General General appearance: Appears well, Alert - HEENT Head: Normocephalic, Atraumatic Eyes: Normal Pupils: PERRL - Respiratory Respiratory status: No respiratory distress Chest status: Nontender Breath sounds: Normal Chest palpation: Normal - Cardiovascular Rhythm: Regular Heart sounds: Normal auscultation Murmur: No - Abdominal Inspection: Normal Distension: No distension Bowel sounds: Normal Tenderness: Nontender Organomegaly: No organomegaly - Back Back: Normal, Nontender - Extremities General upper extremity: Normal inspection, Nontender, Normal color, Normal ROM, Normal temperature General lower extremity: Normal inspection, Nontender, Normal color, Normal ROM, Normal temperature, Normal weight bearing. No: Charmaine's sign - Neurological Neuro grossly intact: Yes Cognition: Normal Orientation: AAOx4 [place] Coma Scale Eye Opening: Spontaneous [place] Coma Scale Verbal: Oriented Aysha Coma Scale Motor: Obeys Commands Aysha Coma Scale Total: 15 Speech: Normal Motor strength normal: LUE, RUE, LLE, RLE Sensory: Normal - Psychological Associated symptoms: Normal affect, Normal mood - Skin Skin Temperature: Warm Skin Moisture: Dry Skin Color: Normal Course - Re-evaluation Re-evalutation: 08/12/19 10:24 Patient will have catheter placed. Urine pending. 08/12/19 11:51 Robledo catheter placed. Patient feels better with it in. Urine concerning for infection. Culture will be sent. Blood work within normal limits. Patient will be discharged home with leg bag and prescription for antibiotics. He is to call his urologist today for an appointment Thursday or Thursday. Understands and agrees with plan. Grateful for care. Stable for discharge. - Vital Signs Vital signs: Temp Pulse Resp BP Pulse Ox 97.5 F 88 18 156/76 H 99 08/12/19 09:48 08/12/19 09:48 08/12/19 09:48 08/12/19 09:48 08/12/19 09:48 - Laboratory Result Diagrams: 08/12/19 10:42 08/12/19 10:42 Laboratory results interpreted by me: 08/12/19 08/12/19 08/12/19 09:55 10:42 10:42 RBC 4.20 L Hgb 12.4 L Hct 37.0 L Sodium 134.4 L Glucose 263 H Urine Protein 100 H Urine Glucose (UA) 50 H Urine Blood LARGE H Ur Leukocyte Esterase SMALL H Urine Ascorbic Acid 20 H Procedures - Additional Procedures Robledo catheter Additional Procedures: Other - by nurse Discharge - Discharge Clinical Impression: Urinary retention UTI (urinary tract infection) Qualifiers: Urinary tract infection type: site unspecified Hematuria presence: with hematuria Qualified Code(s): N39.0 - Urinary tract infection, site not specified; R31.9 - Hematuria, unspecified Condition: Stable Disposition: HOME, SELF-CARE Instructions: Urinary Tract Infection ([facility]), Robledo Catheter Care ([facility]) Additional Instructions: Please call your urologist today and tell them that you were in the emergency department and had a catheter placed. It looks like you have an infection in your urine and a urine culture has been sent. Please try to see your urologist on Thursday or Thursday next week. Prescriptions: Cefdinir 300 mg PO BID #30 capsule Referrals: MAK LUA MD [Primary Care Provider] - Follow up as needed
[2019-08-12 10:40] LABS: APPEARANCE,URINE TURBID; BILIRUBIN,URINE NEGATIVE (NEGATIVE); GLUCOSE, URINE 50 mg/dL (NEGATIVE); KETONES,URINE NEGATIVE (NEGATIVE); LEUKOCYTE ESTERASE,URINE SMALL (NEGATIVE); NITRITE,URINE NEGATIVE (NEGATIVE); PROTEIN,URINE 100 mg/dL (NEGATIVE); UROBILINOGEN,URINE NEGATIVE mg/dL (<2.0)
[2019-08-12 10:41] LABS: COLOR,URINE RED
[2019-08-12 10:58] LABS: ABSOLUTE LYMPHOCYTES (AUTO) 0.7 10^3/uL (0.5-4.7); ABSOLUTE MONOCYTES (AUTO) 0.4 10^3/uL (0.1-1.4); ABSOLUTE NEUT (AUTO) 4.1 10^3/uL (1.7-8.2); BASOPHILS % (AUTO) 0.8 % (0-2); EOSINOPHILS % (AUTO) 0.4 % (0-6); HEMOGLOBIN 12.4 g/dL (13.5-17.0); LYMPHOCYTES % (AUTO) 13.5 % (13-45); MEAN CORPUSCULAR HEMOGLOBIN 29.4 pg (27.0-33.4); MEAN CORPUSCULAR HGB CONC 33.4 g/dL (32.0-36.0); MEAN CORPUSCULAR VOLUME 88 fl (80-97); MONOCYTES % (AUTO) 7.6 % (3-13); PLATELET COUNT 206 10^3/uL (150-450); RED CELL DISTRIBUTION WIDTH 13.5 % (11.5-14.0); SEGMENTED NEUTROPHILS % (AUTO) 77.7 % (42-78); TOTAL CELLS COUNTED % (AUTO) 100 %; WHITE BLOOD COUNT 5.3 10^3/uL (4.0-10.5)
[2019-08-12 11:02] LABS: PROTHROMBIN TIME 14.2 SEC (11.4-15.4)
[2019-08-12 11:03] LABS: PARTIAL THROMBOPLASTIN TIME 31.1 SEC (23.5-35.8)
[2019-08-12 11:18] LABS: ANION GAP 10 (5-19); BLOOD UREA NITROGEN 16 mg/dL (7-20); CALCIUM 9.1 mg/dL (8.4-10.2); CARBON DIOXIDE 25 mmol/L (22-30); CHLORIDE 99 mmol/L (98-107); GLUCOSE 263 mg/dL (75-110); POTASSIUM 4.4 mmol/L (3.6-5.0)
[2019-08-12] MEDS ORDERED: ACETAMINOPHEN 325 MG TABLET PO ONE (12:10)
[2019-08-12] MEDS ORDERED: CEFTRIAXONE 2 GM/D5W RTU 2 GM/50 ML RTUPB IV ONE (13:16)
[2019-08-12 15:18] VITALS: BP 183/90
== END 2019-08-12 15:04 | disposition home or self-care (01) ==
LOC: ER 09:29
DX: R33.9 Retention of urine, unspecified (principal); N39.0 Urinary tract infection, site not specified; R31.0 Gross hematuria; E11.9 Type 2 diabetes mellitus without complications; I10 Essential (primary) hypertension; Z98.890 Other specified postprocedural states; Z88.8 Allergy status to other drugs, medicaments and biological substances; Z91.048 Other nonmedicinal substance allergy status
CPT/HCPCS: 99283; 51702; 96365; 36415; 87086; 85025; 85610; 85730; 80048; 81001; C1758 ×2; A9270 ×2; J0696; J3490